=== PATIENT | female | born 1975 | race Caucasian/White ===

== ENCOUNTER → 2017-04-28 | Outpatient (CLI) | payer BC ==
[~2017-04-28] MED LIST: ASPEC325 PO; ASPEC81 PO; CLC100 PO; CMD25 PO; OXYC-57 PO
--- NOTE | 2017-04-29 08:10 | MAMMOGRAPHY REPORT ---
BILATERAL DIGITAL SCREENING MAMMOGRAM TOMOSYNTHESIS WITH CAD: 04/28/2017 CLINICAL HISTORY: Routine screening. Patient has no complaints. TECHNIQUE: Breast tomosynthesis in addition to standard 2D mammography was performed. Current study was also evaluated with a Computer Aided Detection (CAD) system. COMPARISON: Comparison is made to exams dated: 04/28/2016 ultrasound, 04/28/2016 mammogram, 04/23/2016 mammogram, 04/10/2015 mammogram, 02/22/2014 mammogram - [facility], and 04/08/2007. BREAST COMPOSITION: There are scattered areas of fibroglandular density in both breasts. FINDINGS: No suspicious mass, architectural distortion or cluster of microcalcifications is seen. IMPRESSION: ACR BI-RADS CATEGORY 1: NEGATIVE There is no mammographic evidence of malignancy. A 1 year screening mammogram is recommended. The pa tient will receive written notification of the results. Approximately 10% of breast cancers are not detected with mammography. A negative mammographic report should not delay biopsy if a clinically suggestive mass is present. Naomi Schroeder M.D. ay/:04/28/2017 15:28:50 Consulting Technical Director: Yessica WHITTENR, M, [facility] letter sent: Normal 1/2 BI-RADS Code: ACR BI-RADS Category 1: Negative
== END | disposition home or self-care (01) ==
LOC: C.MAMM 10:14
PROVIDERS: ATTEND Obstetrics & Gynecology
DX: Z12.31 Encounter for screening mammogram for malignant neoplasm of breast (principal)

== ENCOUNTER 2017-07-22 05:35 | Observation (INO) | payer BC ==
[2017-07-14 09:31] VITALS: BMI 39.0
--- NOTE | 2017-07-14 09:43 | PAT Medication Instructions ---
Service Date Jul 14, 2017. Current Home Medication List Acetaminophen (Tylenol), 1,000 MG PO PRN Alprazolam (Xanax), 0.5 MG PO PRN Brimonidine Tartrate (Topical) (Mirvaso), 1 DOSE TOP QAM Fluticasone Propionate (Nasal) (Flonase Allergy Relief), 2 SPRAYS INTNAS PRN Ivermectin (Rosacea) (Soolantra), 1 DOSE TOP QAM [Mini Pill], 1 TAB PO QAM [Retinoid], 1 DOSE TOP Q2D Medication Instructions For Your Scheduled Surgery - Contact your surgeon for instructions for: [Mini Pill], 1 TAB PO QAM - Hold the following medications 24 hours prior to surgery: [Retinoid], 1 DOSE TOP Q2D Ivermectin (Rosacea) (Soolantra), 1 DOSE TOP QAM Brimonidine Tartrate (Topical) (Mirvaso), 1 DOSE TOP QAM - Take the following medications the morning of surgery with a sip of water OTHERWISE NOTHING TO EAT OR DRINK AFTER MIDNIGHT: Acetaminophen (Tylenol), 1,000 MG PO PRN (if needed) Alprazolam (Xanax), 0.5 MG PO PRN (if needed) Fluticasone Propionate (Nasal) (Flonase Allergy Relief), 2 SPRAYS INTNAS PRN ( if needed) - Take the following medications as scheduled the night before surgery: Acetaminophen (Tylenol), 1,000 MG PO PRN (if needed) Alprazolam (Xanax), 0.5 MG PO PRN (if needed) Fluticasone Propionate (Nasal) (Flonase Allergy Relief), 2 SPRAYS INTNAS PRN ( if needed) If you have any questions please call us at [phone] or [phone] or [phone]
[2017-07-14 11:14] LABS: BASO % 0.3 %; BASO ABS # 0.02 K/uL (0-0.2); COMPLETE YES; HEMATOCRIT 39.8 % (37-47); IG% 0.1 %; LYMPH % 36.5 %; LYMPH ABS # 2.63 K/uL (1.2-3.4); MEAN CELL VOLUME 87.1 fL (80-100); MEAN CORPUSCULAR HEMOGLOBIN 29.8 pg (25-34); MEAN CORPUSCULAR HGB CONC 34.2 g/dl (32-36); MEAN PLATELET VOLUME 10.3 fL (7.4-10.4); MONO % 6.4 %; NEUT % 55.7 %; PLATELET COUNT 250 K/uL (130-400); RED BLOOD COUNT 4.57 M/uL (4.2-5.4); WHITE BLOOD COUNT 7.21 K/uL (4.8-10.8)
[2017-07-14 11:23] LABS: PARTIAL THROMBOPLASTIN RATIO 1.1; PROTHROMBIN TIME (PATIENT) 10.6 SECONDS (9.0-12.0)
[2017-07-14 12:30] LABS: BUN/CREATININE RATIO 14.4 (10-20); CALCIUM 8.8 mg/dl (8.5-10.1); CREATININE 0.89 mg/dl (0.60-1.20); POTASSIUM 4.1 mmol/L (3.5-5.1)
[2017-07-22] VITALS (9 sets, daily range): BP systolic 102–120; BP diastolic 69–81; PULSE 64–84; TEMP 36.6–37.1; O2SAT 91–96; Ht 160 cm; Wt 100.7 kg
[~2017-07-22] VITALS: Ht 160 cm; Wt 100.7 kg
[~2017-07-22 05:35] MED LIST changes: +ALPR-411 PO; -ASPEC325 PO; -ASPEC81 PO; +BRIM1GEL TOP; -CLC100 PO; -CMD25 PO; +FLUT0.15 INTNAS; +IVER1CRE TOP; -OXYC-57 PO; +TYLOTC500 PO; +[UNRECOGNIZED DRUG - REMARK] PO; +[UNRECOGNIZED DRUG - REMARK] TOP
[2017-07-22] MEDS ORDERED: LACTATED RINGER'S 1000ML 1,000 ML IV SCH (06:00)
[2017-07-22] MEDS ORDERED: CEFAZOLIN 2000MG IV PUSH 10 ML IV SCH (06:00)
[2017-07-22] MEDS ORDERED: CEFAZOLIN IV 2,000 MG in SYRINGE 0 ML IV SCH (06:00)
[2017-07-22] MEDS ORDERED: ENOXAPARIN 40 MG/0.4 ML SYR SQ SCH (06:00)
[2017-07-22] MEDS ORDERED: [UNRECOGNIZED DRUG - CODE] (06:02)
[2017-07-22] MEDS ORDERED: ACETAMINOPHEN 1000 MG/100 ML IV IV ONE (06:53)
[2017-07-22] MEDS ORDERED: ONDANSETRON INJ 2 MG/ML 2 ML VIAL IV PRN ×2 (07:00→11:15)
[2017-07-22] MEDS ORDERED: HYDROmorphone INJ 2 MG/ML SYR/VIAL ONE (07:00)
[2017-07-22] MEDS ORDERED: PROMETHAZINE HCL INJ 12.5 MG in SODIUM CHLORIDE 0.9% 50ML 50 ML IV PRN ×2 (07:00→11:15)
[2017-07-22] MEDS ORDERED: ATROPINE SULFATE 0.1 MG/ML 5ML SYR IV PRN (07:00)
[2017-07-22] MEDS ORDERED: FENTANYL CITRATE INJ 50 MCG/1 ML 2 ML VIAL ONE ×3 (07:00→10:32)
[2017-07-22] MEDS ORDERED: LIDOCAINE HCL 2% 2 ML VIAL (20MG/ML) ONE (07:00)
[2017-07-22] MEDS ORDERED: EpHEDrine SULFATE INJ 50 MG/ML AMP IV PRN (07:00)
[2017-07-22] MEDS ORDERED: DEXAMETHASONE SOD INJ 4 MG/ML VIAL ONE (07:00)
[2017-07-22] MEDS ORDERED: MIDAZOLAM HCL 1 MG/ML 2ML VIAL ONE (07:00)
[2017-07-22] MEDS ORDERED: PROPOFOL IV EMULSION 10 MG/ML 20 ML VIAL IV ONE (07:00)
[2017-07-22] MEDS ORDERED: ONDANSETRON INJ 2 MG/ML 2 ML VIAL ONE (07:00)
[2017-07-22] MEDS ORDERED: HYDROmorphone INJ 1 MG/ML SYR IV PRN (07:00)
[2017-07-22] MEDS ORDERED: SODIUM CHLORIDE 0.9% INJ 10 ML VIAL ONE (07:01)
[2017-07-22] MEDS ORDERED: LIDOCAINE/EPINEPHRINE 1% 20 ML VIAL ONE (07:02)
[2017-07-22] MEDS ORDERED: BUPIVACAINE 0.25% 30 ML VIAL ONE (07:02)
--- NOTE | 2017-07-22 07:12 | History & Physical Bridge Note ---
H&P Re-Evaluation Bridge Note: I have examined the patient, reviewed the History & Physical and in the interval since the performance of the History & Physical I have noted the following changes of clinical significance: No changes noted
[2017-07-22] MEDS ORDERED: CEFAZOLIN SOD 1 GM VIAL ONE (07:58)
[2017-07-22] MEDS ORDERED: PHENYLEPHRINE 100MCG/ML 5ML SYR ONE (08:51)
[2017-07-22] MEDS ORDERED: NEOSTIGMINE METHYLSULFATE 5 MG/5 ML SYR ONE (10:23)
[2017-07-22] MEDS ORDERED: GLYCOPYRROLATE INJ 0.2 MG/ML VIAL ONE (10:23)
--- NOTE | 2017-07-22 11:05 | [facility] Post Operative Brief Note ---
Immediate Operative Summary Operative Date Jul 22, 2017. Pre-Operative Diagnosis Bilateral Breast Hypertrophy Post-Operative Diagnosis Bilateral Breast Hypertrophy Procedure(s) Performed Bilateral Breast Reduction Surgeon Dr. Stefanie Hernandez Telephone Clerk [employer] Office Surgeon(s) Janet Aguilar PA-C Estimated Blood Loss 50ml Findings bilateral NACs pink and viable Specimens A.) Left Breast Tissue -out of body at 0836 -total weight = 614grams B.) Right Breast Tissue -out of body at 1008 -total weight = 652grams Drains GLENIS x2 Anesthesia GET Complication(s) None Disposition Recovery Room / PACU
[2017-07-22] MEDS ORDERED: CEFAZOLIN IV 2,000 MG in DEXTROSE 5% 50ML 50 ML IV SCH (11:15)
[2017-07-22] MEDS ORDERED: MoRPHine SULFATE 4 MG/ML 1 ML CARP\\VIAL IV PRN (11:15)
[2017-07-22] MEDS ORDERED: OXYCODONE/ACETAMINOPHEN 5-325 TAB PO PRN (11:15)
[2017-07-22] MEDS ORDERED: MoRPHine SULFATE 2 MG/ML CARP IV PRN (11:15)
[2017-07-22] MEDS ORDERED: DiphenhydrAMINE HCL 50 MG/ML VIAL IV PRN (11:15)
[2017-07-22] MEDS ORDERED: ALPRAZOLAM 0.5 MG TAB PO PRN (11:15)
[2017-07-22] MEDS ORDERED: ACETAMINOPHEN 500 MG TAB PO PRN (11:15)
[2017-07-22] MEDS ORDERED: OXAZEPAM 10MG CAP PO PRN (11:15)
[2017-07-22] MEDS ORDERED: ACETAMINOPHEN 325 MG TAB PO PRN (11:15)
--- NOTE | 2017-07-22 11:17 | Discharge Instructions ---
Discharge Instructions Date of Service Jul 22, 2017. Admission Reason for Admission: Bilateral Symptomatic Macromastia Discharge Discharge Diagnosis / Problem: macromastia Discharge Goals Goal(s): Decrease discomfort Activity Recommendations Activity Limitations: per Instructions/Follow-up section ACTIVITY RECOMMENDATIONS: __Normal activities _x_No bending, lifting or straining __No driving __Driving allowed when you are off pain medications _x_Walking permitted __You should have help at home for ___ days DRESSINGS: __No dressings required _x_Keep dressings dry/in place until first office visit __Remove dressings ___ and leave dressings off __Apply ice ___ days __Remove dressings and reapply garment __Apply antibiotic ointment (Bacitracin, Neosporin, etc) to wounds 3-4 times/ day for 10 days BATHING: _x_Keep dressings dry _x_Sponge bathing permitted away from incision site __Showering permitted _x_No swimming, hot tubs or soaking in a tub MEDICATIONS: Resume previous medications unless instructed otherwise by your surgeon. _x_Do not use aspirin, Motrin, Advil or Ibuprofen as these may promote bleeding. Please use Tylenol. _x_Prescription(s) provided: pain medication was provided at your last office visit OTHER INSTRUCTIONS: __Record drain output 2-3 times per day SPECIAL CARE INSTRUCTIONS: * It is normal to have a mild fever after surgery. If your temperature is higher than 101.5 degrees F, please call the office at [phone]. * Constipation is a typical side effect of pain medication. An over-the- counter stool softener will help relieve this. * Leaking around surgical drains may occur and should not cause concern. Sometimes these drains become clogged. If this happens, remove the bulb and milk the clot out of the tube, then replace the bulb. * Drainage from wounds after liposuction is normal and should be expected. Garments will become soiled. You should protect furniture and bedding. This drainage should mostly subside within 2-3 days. Leave garments in place unless instructed to remove them. * If you have unusual drainage from a wound or are concerned you have an infection or have any questions or concerns, please call the office at [phone]. FOLLOW UP VISIT: If not already scheduled, please call the office, , when you return home after surgery to schedule an appointment to be seen in _1__ days. . Current Hospital Diet Patient's current hospital diet: Regular Diet Discharge Diet Recommended Diet: Regular Diet Procedures Procedures Performed: Bilateral Breast Reduction Pending Studies Studies pending at discharge: yes List of pending studies: pathology Medical Emergencies . Who to Call and When: Medical Emergencies: If at any time you feel your situation is an emergency, please call 911 immediately. . Non-Emergent Contact Non-Emergency issues call your: Primary Care Provider, Surgeon . "Provider Documentation" section prepared by Janet Aguilar. . VTE Core Measure Inpt VTE Proph given/why not?: Enoxaparin (Lovenox)SQ, SCD's [place] Drug Monitoring Program Search Results: no issues identified
[2017-07-22] MEDS: FENTANYL CITRATE INJ 50 MCG/1 ML 2 ML VIAL IV PRN ×4 (11:19→11:46)
[2017-07-22] MEDS ORDERED: IV FLUIDS COMPLETED PRN (11:45)
[2017-07-22] MEDS ORDERED: MoRPHine SULFATE 4 MG/ML 1 ML CARP\\VIAL ONE (12:29)
--- NOTE | 2017-07-22 12:52 | Anesthesiology Progress Note ---
Anesthesia Post Op Note Date & Time Jul 22, 2017 at 12:52 Vital Signs Pain Intensity: 9.0 Vital Signs Past 12 Hours Date Time Temp Pulse Resp B/P (MAP) Pulse Ox O2 Delivery O2 Flow Rate FiO2 07/22/17 12:00 59 14 113/73 94 Nasal Cannula 3 07/22/17 11:50 36.2 58 13 113/73 95 Nasal Cannula 3 07/22/17 11:40 63 12 112/74 94 Nasal Cannula 3 07/22/17 11:30 56 14 114/73 97 Oxymask 10 07/22/17 11:20 61 13 107/70 94 Oxymask 10 07/22/17 11:10 36.3 74 16 105/77 96 Oxymask 10 07/22/17 06:10 37 83 18 120/77 (91) 96 Room Air Notes Mental Status: alert / awake / arousable, participated in evaluation Pt Amnestic to Procedure: Yes Nausea / Vomiting: adequately controlled Pain: adequately controlled Airway Patency, RR, SpO2: stable & adequate BP & HR: stable & adequate Hydration State: stable & adequate Anesthetic Complications: no major complications apparent Awake, doing well, VSS.
--- NOTE | 2017-07-22 12:57 | OPERATIVE REPORT ---
DATE OF OPERATION: 07/22/2017 PREOPERATIVE DIAGNOSIS: Bilateral breast hypertrophy. POSTOPERATIVE DIAGNOSIS: Same. PROCEDURE: Bilateral reduction mammoplasty. SURGEON: Dr. Stefanie Hernandez. ORDER FILLER: Janet Aguilar PA-C. ANESTHESIA: General. COMPLICATIONS: None. INDICATION FOR THE PROCEDURE: The patient is a 41-year-old female who presented to my office with complaints of large breasts and symptoms of back, neck and shoulder pain, desiring to undergo breast reduction surgery. BRIEF DESCRIPTION OF THE PROCEDURE: Risks, benefits, and alternatives of the procedure were explained to the patient, who agreed and signed consent. She was identified and marked in the preoperative holding area. She was brought to the operating room, where she was positioned supine and placed under general anesthesia without incident. Surgical site was prepped and draped sterilely. A time-out procedure was performed. I began with the left side. The markings were reassessed and an 8-cm pedicle was marked as the patient desired to remain as proportional as possible. 1% lidocaine with epinephrine was used to anesthetize the planned incisions. A 42-mm cookie cutter was used to circumscribe the nipple-areolar complex. The previously marked 8 cm pedicle was incised using a 15 blade scalpel and deepithelized. I began with the medial dissection of the pedicle using electrocautery. Cautery was used to incise through dermis and breast parenchyma down to chest wall, taking care not to undermine the pedicle during dissection. A similar procedure was undertaken on the lateral aspect of the pedicle again taking care not to undermine. Lastly, the pedicle was dissected out superiorly using electrocautery and this was carried down to the chest wall as well. I then began with excision of the medial breast tissue followed by lateral aspect of the breast tissue and surrounding keyhole incision. A 15 blade scalpel was used to make the inframammary fold incision and electrocautery was used to deepen the incision through dermis and breast parenchyma. Dissection was then carried superiorly to the level of the superior incision. Superior incision was then incised using a 15 blade scalpel and again dissected using electrocautery. This was undertaken laterally and then around the keyhole portion of the incision. Care was taken to leave some fat on the lateral pectoralis fascia in order protect the T4 intercostal nerve. Hemostasis was achieved with electrocautery. Specimen was removed in its entirety and passed off for weighing. Additional resection was undertaken from underneath flap until a total of 614 grams were removed from the left breast. The wound was irrigated with normal saline. Hemostasis was achieved with electrocautery. 0.25% Marcaine plain was used to anesthetize the incisions as well as the pectoralis fascia. A 15-Honduran Pawan drain was brought out through a separate stab incision. The nipple-areolar complex was brought into the keyhole using a 2-0 Vicryl deep dermal suture. The wound was closed first in a lateral to mid breast direction using 2-0 Vicryl deep dermals and then in medial to mid breast using 2-0 Vicryl deep dermal sutures. Vertical limb was approximated using 2-0 Vicryl deep dermals. Next, the superficial dermal layer was closed using 2-0 Vicryl running Quill suture along the inframammary fold and 3-0 PDS interrupted dermal sutures for the vertical limb and nipple-areolar complex. Lastly, 3-0 Monocryl running subcuticular suture was placed. A similar procedure was undertaken on the right side with a maximal excision weight of 652 grams. This resulted in reasonable symmetry between the breasts. Following complete closure, Dermabond Prineo was applied along the inframammary fold and vertical incisions and Dermabond was placed around the nipple-areolar complex. Dry dressings and a surgical bra were placed. The patient was awakened and transferred to recovery in satisfactory condition. Janet Aguilar was present and scrubbed throughout the entire procedure and was instrumental in providing retraction during dissection of the pedicle and assisting in simultaneous wound closure. I attest to the content of the Intraoperative Record and any orders documented therein. Any exception s are noted below.
[2017-07-22] MEDS: LACTATED RINGER'S 1000ML 1,000 ML IV SCH (16:54)
[2017-07-22] MEDS: CEFAZOLIN IV 2,000 MG in SYRINGE 0 ML IV SCH (17:48)
[2017-07-22] MEDS: MoRPHine SULFATE 2 MG/ML CARP IV PRN (21:12)
[2017-07-23] MEDS: MoRPHine SULFATE 2 MG/ML CARP IV PRN ×3 (01:02→07:13)
[2017-07-23] MEDS: CEFAZOLIN IV 2,000 MG in SYRINGE 0 ML IV SCH (01:40)
[2017-07-23 02:19] VITALS: BP 101/68; PULSE 83; TEMP 36.8; O2SAT 92
[2017-07-23] MEDS: LACTATED RINGER'S 1000ML 1,000 ML IV SCH (04:02)
[2017-07-23 07:17] VITALS: BP 120/79; PULSE 88; TEMP 36.9; O2SAT 96
--- NOTE | 2017-07-23 07:57 | Surgery Progress Note ---
Surgery Progress Note Date of Service Jul 23, 2017. Subjective Post OP Day: 1 + feeling well, + pain controlled, No complaints, No nausea, No vomiting Objective Vital Signs: Date Time Temp Pulse Resp B/P (MAP) Pulse Ox O2 Delivery O2 Flow Rate FiO2 07/23/17 07:17 36.9 88 20 120/79 (93) 96 Room Air 07/23/17 02:19 36.8 83 16 101/68 (79) 92 Room Air 07/22/17 23:20 37.0 82 15 102/69 (80) 94 Room Air 07/22/17 19:17 37.1 78 18 113/76 (88) 91 Room Air 07/22/17 19:15 Room Air 07/22/17 17:45 94 Room Air 07/22/17 15:45 Nasal Cannula 2.0 07/22/17 15:10 36.6 70 18 120/81 (94) 95 Nasal Cannula 2.0 07/22/17 14:15 84 19 113/78 (90) 95 Nasal Cannula 2.0 07/22/17 13:15 66 20 116/79 (91) 95 Nasal Cannula 2.0 07/22/17 12:45 66 20 112/76 (88) 91 Nasal Cannula 2.0 07/22/17 12:15 Nasal Cannula 2.0 07/22/17 12:15 Nasal Cannula 2.0 07/22/17 12:15 36.7 64 16 109/73 (85) 96 Nasal Cannula 2.0 07/22/17 12:00 59 14 113/73 94 Nasal Cannula 3 07/22/17 11:50 36.2 58 13 113/73 95 Nasal Cannula 3 07/22/17 11:40 63 12 112/74 94 Nasal Cannula 3 07/22/17 11:30 56 14 114/73 97 Oxymask 10 07/22/17 11:20 61 13 107/70 94 Oxymask 10 07/22/17 11:10 36.3 74 16 105/77 96 Oxymask 10 Physical Exam: Pawan drainage (serous) General Appearance: WD/WN, no apparent distress Incision(s): clean, dry, intact, no erythema, findings (nipples pink bilat, decreased sensation on right) Assessment & Plan s/p bilateral breast reduction 1. drains removed. patient comments on being happy with results. d/c home and follow-up in office tomorrow
[2017-07-23] MEDS ORDERED: ENOXAPARIN 40 MG/0.4 ML SYR SQ SCH (09:00)
[2017-07-23] MEDS ORDERED: MULTIVITAMIN TAB PO SCH (09:00)
[2017-07-23] MEDS: OXYCODONE/ACETAMINOPHEN 5-325 TAB PO PRN ×2 (09:08→13:25)
[2017-07-23] MEDS ORDERED: NURSING VERBAL MED ORDER ONE (10:15)
[2017-07-23 13:08] VITALS: BP 120/79; PULSE 88; TEMP 36.9; O2SAT 96
--- NOTE | 2017-07-23 16:45 | Discharge Summary ---
Discharge Summary Date of Service Jul 23, 2017. Admission Date/Reason Jul 22, 2017 at 11:14 Bilateral Symptomatic Macromastia. Discharge Date/Disposition Jul 23, 2017 Home Diagnosis Principal Diagnosis: macromastia Procedure(s) Performed bilateral breast reduction Medication Reconciliation Continued Medications: Acetaminophen (Tylenol) 500 Mg Tab 1000 MG PO PRN, TAB Alprazolam (Xanax) 0.5 Mg Tab 0.5 MG PO PRN, TAB Brimonidine Tartrate (Topical) (Mirvaso) 0.33 % Gel 1 DOSE TOP QAM Fluticasone Propionate (Nasal) (Flonase Allergy Relief) 50 Mcg/Act Spr 2 SPRAYS INTNAS PRN Homeopathic Products (Zicam Allergy Relief) 1 Gel Gel 1 APPLN NA Q4H PRN for Nasal Congestion Ivermectin (Rosacea) (Soolantra) 1 % Cre 1 DOSE TOP QAM [Mini Pill] () 1 TAB PO QAM BCP PER PT [Retinoid] () 1 DOSE TOP Q2D Admission Physical Exam As per Admitting History & Physical. Hospital Course Patient presented to [facility] with history of symptomatic macromastia. She was taken to the OR and underwent bilateral breast reduction surgery. There were no intraoperative complications. She was taken to recovery and admitted for observation. On POD#1 she was tolerating a regular diet and had good pain control. On exam, her incisions are clean, dry, intact, and nipples pink bilaterally. She was discharged home in stable condition with instructions to follow-up as an outpatient the following day. Discharge Instructions Please refer to the electronic Patient Visit Report (Discharge Instructions) for additional information.
== END 2017-07-23 14:01 | disposition home or self-care (01) ==
LOC: C.ACU 05:35 → C.MSN 11:14 → ENRESERV 11:49
PROVIDERS: ADMIT Plastic Surgery; ATTEND Plastic Surgery
DX: N62 Hypertrophy of breast (principal); K21.9 Gastro-esophageal reflux disease without esophagitis; N94.6 Dysmenorrhea, unspecified; L71.9 Rosacea, unspecified; L82.1 Other seborrheic keratosis; Z87.891 Personal history of nicotine dependence; Z79.899 Other long term (current) drug therapy; F41.9 Anxiety disorder, unspecified; E66.9 Obesity, unspecified; Z68.39 Body mass index [BMI] 39.0-39.9, adult

== ENCOUNTER → 2017-10-28 | Outpatient (CLI) | payer OTHER ==
[~2017-10-28] MED LIST changes: +[UNRECOGNIZED DRUG - CODE]
== END | disposition home or self-care (01) ==
LOC: C.PAPS 11:41
PROVIDERS: ATTEND Obstetrics & Gynecology
DX: Z01.419 Encounter for gynecological examination (general) (routine) without abnormal findings (principal)